=== PATIENT | female | born 1960 | race Caucasian/White ===

== ENCOUNTER 2020-01-03 19:00 | Outpatient (CLI) | payer MEDICARE, OTHER ==
[2013-03-13 07:20] VITALS: BMI 35.1
[~2020-01-03 19:00] MED LIST: FISH OIL 1,0001 CA1 PO; FLEXERIL10 MG PO; KLONOPIN1 MG PO; LASIX20 MG PO; LEVOTHROID25 MCG PO; LYRICA50 MG PO; MOBIC7.5 MG PO; MOTRIN600 MG PEG; MULTIPLE VITAMI1 TA1 PO; NORCO 10/325 TA1 TA1 PO; PRILOSEC20 MG PO; PROPRANOLOL HCL20 MG PO; PROVERA 5 MG TAB5 MG PO; VALTREX500 MG PO; VITAMIN B COMPL1 TA1 PO; VITAMIN D31000 UNIT PO; WELLBUTRIN75 MG PO; ZOCOR20 MG PO
== END 2020-01-03 23:59 | disposition home or self-care (01) ==
LOC: D.MAMMO 19:00
PROVIDERS: ATTEND Family Medicine
DX: Z12.31 Encounter for screening mammogram for malignant neoplasm of breast (principal)